=== PATIENT | male | born 2000 | race Caucasian/White ===

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

== ENCOUNTER → 2022-03-08 12:42 | Outpatient (BNVA) | payer MEDICAID, SELFPAY | PROVIDERS: PCP Pediatrics; Visit Provider Surgery | DX: L05.91 Pilonidal cyst without abscess (principal) | CPT/HCPCS: 99202 ==

== ENCOUNTER 2022-04-14 06:08 | Day surgery (SDC) | payer MEDICAID, SELFPAY ==
--- NOTE | 2022-04-13 10:17 | HO.ANESPROP2 ---
Documented by User: Lisa Knight NP 04/13/22 10:18 HPI - Anesthesia Eval Consult details Narrative: 21yo M for Excision Pilonidal Cyst PMFSH Active Problems Active Problems: All Active Problems (Updated 03/08/22 @ 13:10 by Kalyan Mustafa MD) Sacrococcygeal pilonidal cyst (Acute) Past Medical History Medical History Sacrococcygeal pilonidal cyst Surgical History Surgical History No pertinent past surgical history Social History Social History Patient Tobacco Use Status: Never used Tobacco Second Hand Smoke Exposure: No Use of substances other than those prescribed or required for medical reasons: No Are you DNR?: No Advance Directives: No Advance Directives Information Provided: Yes Advance Directives on File: No Meds Allergies Allergy/AdvReac Type Severity Reaction Status Date / Time tree nut Allergy Severe Unknown Verified 04/07/22 11:42 Seasonal Allergies Allergy Unknown Verified 04/07/22 11:42 Home Medications Medication Instructions Recorded Confirmed Last Taken Type cetirizine 10 mg tablet 10 mg PO DAILY PRN 03/08/22 04/07/22 Unknown History Exam Exam Date and Time: April 13, 2022 1017 Assessment and Plan Assessment Anesthesia Assessment: Chart Reviewed Documented by User: Mayuri Boo MD 04/14/22 07:47 PMFSH Past Medical History Medical History Sacrococcygeal pilonidal cyst Surgical History Surgical History No pertinent past surgical history History of Problems with Anesthesia: No Social History Social History Patient Tobacco Use Status: Never used Tobacco Second Hand Smoke Exposure: No Use of substances other than those prescribed or required for medical reasons: No Are you DNR?: No Advance Directives: No Advance Directives Information Provided: Yes Advance Directives on File: No Meds Allergies Allergy/AdvReac Type Severity Reaction Status Date / Time tree nut Allergy Severe Unknown Verified 04/07/22 11:42 Seasonal Allergies Allergy Unknown Verified 04/07/22 11:42 Home Medications Medication Instructions Recorded Confirmed Last Taken Type cetirizine 10 mg tablet 10 mg PO DAILY PRN 03/08/22 04/07/22 Unknown History Exam Airway Mallampati Class: II TM Dist: >3cm Neck ROM: Full Loose/Missing/Broken Teeth: No Heart: RRR Lungs: CTA Assessment and Plan Assessment Anesthesia Assessment: Anesthesia Plan Discussed Final Anesthetic Review History of Problems with Anesthesia: No NPO: Yes ASA Class: II Final Preanesthetic Review: Meds/Allgs Chart Reviewed, Consent Obtained/Reviewed and Anes Risks/Benef Reviewed Patient Risk: Low Procedure Risk: Low Anesthetic Plan Anesthetic Plan: GA Disposition: Standard PACU
[2022-04-14 06:16] VITALS: BMI 41.3
[2022-04-14 06:32] VITALS: BP 121/77; PULSE 90; RESP 16; TEMP 36.7; O2SAT 98
[2022-04-14] MEDS: Lactated Ringers 1,000 ML 100 ML IVCONT (06:33)
--- NOTE | 2022-04-14 07:22 | P.HPSUR_ITS ---
Pre-Procedural Eval Section A Date of Service: 04/14/22 Section B Chief Complaint: pilonidal cyst Details of Present Illness: recurrent swelling, drainage and pain near the tailbone Relevant Family History (Specify if Yes): No Relevant Social History: None Present Medications: see Short Stay Collaborative assessment Medical History: No relevant PMH History of Previous Operations: No relevant previous surgery Allergies: Allergies Allergy/AdvReac Type Severity Reaction Status Date / Time tree nut Allergy Severe Unknown Verified 04/07/22 11:42 Seasonal Allergies Allergy Unknown Verified 04/07/22 11:42 Review of Systems Sugical H&P ROS: Negative: Constitution, Cardiovascular, Respiratory, Neurological, Psychiatric, Hem-Onc, Allergic/Immunologic, Gastrointestinal, Genitourinary, Musculoskeletal, Integumentary, Endocrine and Ey es/Ears/Nose/Throat Exam Surgical H&P Exam: Normal: HEENT, Normal: Heart, Normal: Lungs, Normal: Extremities, Normal: Abdomen, Normal: Skin and Normal: Neurological Exam Comment: sacrococcygeal pilonidal cyst Plan Diagnosis/Plan: Unchanged I have reviewed the history and physical and performed a pertinent physical examination on my patient. No changes have occurred unless specified.
--- NOTE | 2022-04-14 08:28 | P.OP_ITS ---
Operative Note Operative Note Date of Service: 04/14/22 Narrative: Preop diagnosis: Pilonidal cyst, sacrococcygeal area Postop diagnosis: Pilonidal cyst, sacrococcygeal area Procedure: Excision of pilonidal cyst, sacrococcygeal area Surgeon: Kalyan Mustafa MD The patient is a 21-year-old male with recurrent pain, swelling and drainage on the sacrococcygeal area. Examination was consistent with a pilonidal cyst with multiple midline pits. He understood the technique of excision under anesthesia. Was aware of the risks, benefits, and alternatives The patient was brought to the operating room. He was placed in prone mary- knife position under general anesthesia via endotracheal tube. The sacrococcygeal was prepped draped usual sterile fashion. A surgical time-out was done. The patient received cefazolin IV preoperatively. There was note of an area of induration just above the gluteal cleft a little to the left of the midline. Tthere was note of mood ball small midline pits within the gluteal cleft itself. Infiltrated this area with lidocaine 1%. I made a long elliptical incision using blade 15. This was carried down through the full-thickness of the skin and subcutaneous fat with electrocautery. I excise this entire area to include all diseased skin and subcutaneous tissue. this was sent as a specimen. The excised area was about 12 cm long and 3.5 cm wide. I then developed thick subcutaneous flaps on both the left and right side to allow closure without tension. I cauterized all oozing areas. Once hemostasis was ensured, I reapposed the deep subcutaneous layer multiple Dexon 2-0 sutures. I then closed the skin with full-thickness nylon 2-0 vertical matter sutures alternating with simple interrupted sutures. The area was then infiltrated with Marcaine 0.5% for postop analgesia. Dressings were applied. The procedure was then completed . The patient tolerated The procedure well. There were no complications noted. Initial and final counts of sponges and instruments were correct. Estimated blood loss was about 25 cc . The patient was extubated without difficulty and transferred to the recovery room with stable vital signs.
[2022-04-14 08:38] VITALS: BP 131/71; PULSE 91; RESP 16; TEMP 36.3; O2SAT 100
[2022-04-14 08:43] VITALS: BP 123/61; PULSE 94; RESP 16; O2SAT 98
[2022-04-14 08:48] VITALS: BP 127/70; PULSE 90; RESP 16; O2SAT 98
[2022-04-14 08:53] VITALS: BP 128/76; PULSE 87; RESP 16; O2SAT 97
[2022-04-14 09:08] VITALS: BP 119/80; PULSE 94; RESP 16; TEMP 36.3; O2SAT 96
== END 2022-04-14 09:55 | disposition home or self-care (01) ==
PROVIDERS: Visit Provider Surgery
PROC: (CPT 11771; principal; 2022-04-14 07:30)
DX: L05.01 Pilonidal cyst with abscess (principal); J30.2 Other seasonal allergic rhinitis; Z79.899 Other long term (current) drug therapy
CPT/HCPCS: 11771; 88304; J0690; J1100; J1885; J2250; J2405; J3010

== ENCOUNTER 2023-08-07 15:25 | Emergency (ER) | payer MEDICAID, SELFPAY ==
--- NOTE | ~2023-08-07 | XR_ITS ---
EXAMINATION: XR LUMBOSACRAL SPINE CLINICAL INFORMATION: Midline tenderness COMPARISON: None available. TECHNIQUE: Three views of the lumbosacral spine. FINDINGS: The vertebral bodies and posterior elements are normal. The disc spaces are preserved and the vertebral alignment is normal. The paraspinal soft tissues are normal. XR/XR lumbar spine 2-3V IMPRESSION: Unremarkable examination.
[2023-08-07 15:26] VITALS: BP 138/64; PULSE 84; RESP 16; TEMP 36.7; O2SAT 99; BMI 25.8
--- NOTE | 2023-08-07 15:27 | ED.GENADULT ---
HPI - General Adult General Chief complaint: Back Pain/Injury Stated complaint: Back pain Time Seen by Provider: 08/07/23 16:36 Source: patient Mode of arrival: ambulatory Limitations: no limitations History of Present Illness HPI narrative: Patient is a 22-year-old male presenting to the emergency department with complaint of low back pain for the past several months. 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 States that his pain began after twisting while lifting. He denies any radiation of pain to his lower extremities. Denies any saddle anesthesia or bowel or bladder incontinence. Denies any fevers. Denies any dysuria, frequency, hematuria or other urinary symptoms. Has used ibuprofen with temporary improvement of pain. Denies any falls or other trauma precipitating symptoms. Does report history of pilonidal cyst removal approximately one year ago. complaint: Back pain Onset (ago): month(s) Location: back Radiation: non-radiation Severity scale (1-10): 8 Quality: aching Pain Consistency: colicky Relieving factors: rest Exacerbating factors: other (Lifting) Associated symptoms: denies other symptoms Treatments prior to arrival: NSAID Related Data Home Medications Medication Instructions Recorded Confirmed cetirizine 10 mg tablet 10 mg PO DAILY PRN Allergy Symptoms 03/08/22 04/07/22 Previous Rx's Medication Instructions Recorded ibuprofen 600 mg tablet 600 mg PO Q6H PRN pain #30 tabs 04/14/22 oxycodone-acetaminophen 5 mg-325 1 tab PO Q4-6H PRN pain, severe 04/14/22 mg tablet (Percocet) #25 tabs cyclobenzaprine 5 mg tablet 5 mg PO TID PRN muscle spasm #10 08/07/23 tabs lidocaine 5 % topical patch 1 patch topical DAILY #15 ea 08/07/23 Allergies Allergy/AdvReac Type Severity Reaction Status Date / Time tree nut Allergy Severe Unknown Verified 05/04/22 12:13 Seasonal Allergies Allergy Unknown Verified 05/04/22 12:13 Review of Systems Review of Systems: As per HPI. Yes all other systems are reviewed and are negative Constitutional: Constitutional: Reports as per [facility] Past Medical History Medical History (Updated 08/07/23 @ 18:50 by Sana Rosales NP) Sacrococcygeal pilonidal cyst Surgical History No pertinent past surgical history Social History Social History Patient Tobacco Use Status: Never used Tobacco Second Hand Smoke Exposure: No Advance Directives: No Advance Directives Information Provided: No Physical Exam ED Vital Signs: Vital Signs - 24 hr 08/07/23 15:26 08/07/23 17:14 Temperature 98.0 F 97.9 F Pulse Rate 84 72 Respiratory Rate 16 20 Blood Pressure 138/64 117/63 Pulse Oximetry 99 99 Oxygen Delivery Method Room Air Room Air BMI result Body Mass Index 25.8 Vital signs have been reviewed and appear to be correct. Blood pressure normal. Heart rate normal. Respiratory rate normal. Temperature normal. Oxygen saturation normal. Const General: cooperative, healthy appearing and no acute distress Orientation/consciousness: oriented to person, oriented to place, oriented to time and patient oriented x3 Limitations: no limitations HENMT Head: Yes normocephalic and Yes atraumatic Ears: external ears normal General nose exam: Normal external nose present Face and sinus: Yes face symmetric Mouth: oropharynx normal and moist mucous membranes Throat: Yes uvula midline Eyes Pupils: Equal, round and reactive pupils present Neck Neck: Yes normal visual inspection and Yes supple Resp Effort & Inspection: normal respiratory effort and able to speak in complete sentences Auscultation: clear to auscultation bilaterally Cardio Rate: regular rate Rhythm: regular rhythm Heart sounds: S1 normal heart sound present and S2 normal heart sound present GI Palpation (GI): Soft to palpation and nontender Auscultation: normoactive bowel sounds General: Yes no CVA tenderness Back/Spine/Pelvis Back: no CVA tenderness Thoracic/Lumbar Spine: thoracic and lumbar spine normal to inspection, No Thoracic/lumbar spine scar(s), thoraco-lumbar ROM normal, straight leg raise negative bilaterally, pain with thoraco-lumbar ROM, paraspinal muscle tenderness bilaterally in the upper lumbar, No thoracic spinal tenderness and lumbar spinal tenderness at L1 and at L2 Pelvis: no pain with anterior-posterior compression and no pain with lateral compression Skin General skin exam: elasticity normal and turgor normal Neuro General: oriented to person, oriented to place, oriented to time, patient oriented x3, gait normal, tone normal, moves all extremities, Normal light touch and pain sensation, no focal motor deficits, CN's II-XI intact bilaterally and deep tendon reflexes 2+ bilaterally Cranial nerves: Yes Equal, round and reactive pupils present Cognition (Neuro): normal cognition Motor exam (neuro): 5/5 motor strength present throughout, Normal motor muscle tone present throughout and Motor abnormalities not present Sensory Exam: Normal double simultaneous stimulation for sensation Extrem General: Yes full ROM, Yes no pedal edema and Yes no calf tenderness Psych Mental Status: mental status grossly normal Affect: normal affect Thought process: Normal thought process present Course Course Course Narrative: This is an RME: Additional HPI, ROS, PE not included below will be deferred to primary provider. 22 y o male presenting for evaluation of atraumatic lower back pain x a month. States he may have hurt it at work, unsure of a specific inciting event. Able to ambulate without difficulty. Denies CP, SOB, abd pain, numbness and tingling. Plan - [facility] [place] Medical Decision Making Medical Decision Making [facility] Narrative: Patient is a 22-year-old male presenting to the emergency department with complaint of low back pain for the past several months. On exam patient is awake, A+Ox3, VS WNL, afebrile, normal neurological exam without focal deficits, physical exam findings as above. Given reported symptoms and physical exam findings, initial differential includes lumbar strain, lumbar radiculopathy, spinal stenosis, compression fracture. Do not suspect spinal epidural abscess, cord compression, cauda equina, osteomyelitis. X-ray notable for no acute abnormality. My interpretation is in agreement with the radiologist's interpretation. Will prescribe cyclobenzaprine and lidocaine patches. Instructed patient to follow-up with primary care provider as he may require physical therapy to improve symptoms. Return precautions discussed at bedside. Patient verbalized understanding of and agreement with plan. Differential Diagnosis Differential Diagnoses: The differential diagnosis associated with the presentation includes As per MDM. Independent Interpretation I performed an independent interpretation of an: Plain X-Ray Interpretation: No acute abnormalities Radiology Impression Discussion of test interpretation with radiology: I have reviewed the radiologist's reading. Radiologist Impression: XR/XR lumbar spine 2-3V IMPRESSION: Unremarkable examination. External Record Review External record reviewed: Inpatient record, Office record and Outpatient record Prescription Management I considered prescription management with: Other Discharge Plan Discharge Clinical Impression: Lumbar strain Qualifiers: Encounter type: initial encounter Qualified Code(s): S39.012A - Strain of muscle, fascia and tendon of lower back, initial encounter Patient Disposition: Home, Self-Care Instructions: Low Back Strain (ED), Acute Low Back Pain (ED) Additional Instructions: You were evaluated in the emergency department today for back pain. Your evaluation did not show signs of medical conditions requiring emergent intervention at this time. We recommended that you use ibuprofen or Tylenol per package directions every 6 hours as needed for pain. If necessary, you can alternate these medications so that you take one medication every 3 hours. For instance, at noon take ibuprofen, then at 3:00 p.m. take Tylenol, then at 6:00 p.m. take ibuprofen. You have been prescribed a muscle relaxer which you may take every 8 hours as needed for spasms. You have been prescribed 5% topical lidocaine patches which you can wear for up to 12 hours in a 24 hour period. Do not apply heat directly over the patches. Please schedule an appointment for follow-up with your primary care physician this week for further evaluation of your symptoms. Return to the emergency department if you experience worsening back pain, difficulty walking, fevers, numbness, tingling, incontinence, groin numbness or tingling, or any other concerning symptoms. Prescriptions: New cyclobenzaprine 5 mg tablet 5 mg PO TID PRN (Reason: muscle spasm) Qty: 10 0RF lidocaine 5 % adhesive patch,medicated 1 patch topical DAILY Qty: 15 0RF Rx Instructions: leave on most painful area for up to 12 hrs No Action oxycodone-acetaminophen [Percocet] 5-325 mg tablet 1 tab PO Q4-6H PRN (Reason: pain, severe) Qty: 25 0RF ibuprofen 600 mg tablet 600 mg PO Q6H PRN (Reason: pain) Qty: 30 0RF cetirizine 10 mg tablet 10 mg PO DAILY PRN (Reason: Allergy Symptoms)
[2023-08-07 17:14] VITALS: BP 117/63; PULSE 72; RESP 20; TEMP 36.6; O2SAT 99
== END 2023-08-07 18:58 | disposition home or self-care (01) ==
PROVIDERS: Emergency Provider Internal Medicine
DX: S39.012A Strain of muscle, fascia and tendon of lower back, initial encounter (principal); X50.0XXA Overexertion from strenuous movement or load, initial encounter; X50.3XXA Overexertion from repetitive movements, initial encounter; Y99.0 Civilian activity done for income or pay; Z79.899 Other long term (current) drug therapy
CPT/HCPCS: 72100; 99283